=== PATIENT | female | born 2000 | race Caucasian/White ===

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

== ENCOUNTER 2020-03-28 12:19 | Emergency (ER) | payer MEDICAID ==
[~2020-03-28] VITALS: Ht 160 cm; Wt 88.0 kg
[2020-03-28 12:33] VITALS: BP 166/84; Ht 160 cm; Wt 88.0 kg
[2020-03-28 13:01] LABS: BASOPHIL % 0.2 % (0.2-1.3); PLATELET COUNT 288 x10^3mcL (179-408)
[2020-03-28 13:06] LABS: RED CELL DISTRIBUTION WIDTH 16.2 % (12.3-17.7)
[2020-03-28] MEDS ORDERED: IRON236 MG PO (14:25)
== END 2020-03-28 14:40 | disposition home or self-care (01) ==
LOC: ED 12:19
PROVIDERS: Emergency Medicine
DX: N93.9 Abnormal uterine and vaginal bleeding, unspecified (principal); R10.9 Unspecified abdominal pain; I10 Essential (primary) hypertension